=== PATIENT | female | born 1960 | race Caucasian/White ===

== ENCOUNTER → 2019-08-15 | Outpatient (CLI) | payer OTHER ==
[~2019-08-15] VITALS: Ht 160 cm; Wt 46.0 kg
[~2019-08-15] MED LIST: CITA-106 PO; FURO40 PO; GABA-529 PO; IBUP-2070 PO; LISI2.5T2 PO; OMEP20 PO
[2019-08-15 11:21] VITALS: BP 112/78
== END | disposition home or self-care (01) ==
LOC: HBOWC 10:40
PROVIDERS: ATTEND Podiatrist
DX: L97.412 Non-pressure chronic ulcer of right heel and midfoot with fat layer exposed (principal); F17.210 Nicotine dependence, cigarettes, uncomplicated; I73.9 Peripheral vascular disease, unspecified
CPT/HCPCS: 11042; G0463